=== PATIENT | female | born 1960 | race Caucasian/White ===

== ENCOUNTER 2018-01-13 10:25 | Outpatient (CLI) | payer OTHER | END 2018-01-13 10:42 | disposition home or self-care (01) | LOC: NUCLEAR 10:25 | DX: M81.0 Age-related osteoporosis without current pathological fracture (principal) ==

== ENCOUNTER 2018-01-13 11:24 | Outpatient (CLI) | payer OTHER | END 2018-01-13 11:34 | disposition home or self-care (01) | LOC: SONOGRAMA 11:24 | DX: E03.8 Other specified hypothyroidism (principal); E04.2 Nontoxic multinodular goiter; E78.2 Mixed hyperlipidemia ==